=== PATIENT | female | born 1940 | race Caucasian/White ===

== ENCOUNTER 2024-05-28 14:12 | Emergency (ER) | payer OTHER ==
[~2024-05-28] VITALS: Ht 162.6 cm; Wt 73.9 kg
[2024-05-28] MEDS ORDERED: MAGN400O6 PO (15:34)
[2024-05-28] MEDS ORDERED: BUSP10TA3 PO (15:34)
[2024-05-28] MEDS ORDERED: BISA10SU11 RC (15:34)
[2024-05-28] MEDS ORDERED: ROSU10TA2 PO (15:34)
[2024-05-28] MEDS ORDERED: MEMA10TA PO (15:34)
[2024-05-28] MEDS ORDERED: KETO15CR2 TP (15:34)
[2024-05-28] MEDS ORDERED: CALC625T PO (15:34)
[2024-05-28] MEDS ORDERED: DONE10TA44 PO (15:34)
[2024-05-28] MEDS ORDERED: DOCU100C36 PO (15:34)
[2024-05-28] MEDS ORDERED: ASPI-1169 PO (15:34)
[2024-05-28] MEDS ORDERED: CYAN500T64 PO (15:34)
[2024-05-28] MEDS ORDERED: BUPR-319 PO (15:34)
[2024-05-28] MEDS ORDERED: CHOL100043 PO (15:34)
[2024-05-28] MEDS ORDERED: [UNRECOGNIZED DRUG - OTHER] PO (15:34)
[2024-05-28] MEDS ORDERED: DICL100G34 TP (15:34)
[2024-05-28] MEDS ORDERED: MAG-135 PO (15:34)
[2024-05-28] MEDS ORDERED: MONT10TA22 PO (15:34)
[2024-05-28] MEDS ORDERED: ACET-868 PO (15:34)
[2024-05-28] MEDS ORDERED: NAPR-1196 PO (15:34)
[2024-05-28] MEDS ORDERED: LOPE2CAP PO (15:34)
[2024-05-28 15:39] VITALS: BP 119/64; TEMP 98.7; O2SAT 100
== END 2024-05-28 15:40 | disposition home or self-care (01) ==
LOC: ER 14:14
DX: S09.8XXA Other specified injuries of head, initial encounter (principal); E78.5 Hyperlipidemia, unspecified; F03.90 Unspecified dementia, unspecified severity, without behavioral disturbance, psychotic disturbance, mood disturbance, and anxiety; Z88.5 Allergy status to narcotic agent; W01.0XXA Fall on same level from slipping, tripping and stumbling without subsequent striking against object, initial encounter; Y93.89 Activity, other specified; Y92.89 Other specified places as the place of occurrence of the external cause; Y99.8 Other external cause status
CPT/HCPCS: 70450-TC

== ENCOUNTER 2024-11-07 12:55 | Emergency (ER) | payer OTHER ==
[~2024-11-07] VITALS: Ht 157.5 cm; Wt 76.7 kg
[~2024-11-07 12:55] MED LIST: ACET-868 PO; ASPI-1169 PO; BISA10SU11 RC; BUPR-319 PO; BUSP10TA3 PO; CALC625T PO; CHOL100043 PO; CYAN500T64 PO; DICL100G34 TP; DOCU100C36 PO; DONE10TA44 PO; KETO15CR2 TP; LOPE2CAP PO; MAG-135 PO; MAGN400O6 PO; MEMA10TA PO; MONT10TA22 PO; NAPR-1196 PO; ROSU10TA2 PO; [UNRECOGNIZED DRUG - OTHER] PO
[2024-11-07 13:09] VITALS: TEMP 97.9
[2024-11-07 13:37] LABS: BASOPHILS # (AUTO) 0.1 K/uL (0.0-0.2); BASOPHILS % (AUTO) 0.8 % (0.0-2.0); EOSINOPHILS # (AUTO) 0.1 K/uL (0.0-0.7); EOSINOPHILS % (AUTO) 0.6 % (0.0-6.0); HEMATOCRIT 47 % (33-45); HEMOGLOBIN 16.1 g/dL (11.5-14.8); LYMPHOCYTES # (AUTO) 1.3 K/uL (0.8-4.8); LYMPHOCYTES % (AUTO) 12.4 % (20.0-44.0); MEAN CORPUSCULAR HEMOGLOBIN 28 PG (26.0-33.0); MEAN CORPUSCULAR HGB CONC 34 g/dl (31.0-36.0); MEAN CORPUSCULAR VOLUME 81 fL (82-100); MONOCYTES # (AUTO) 1.5 K/uL (0.1-1.30); MONOCYTES % (AUTO) 14.4 % (2.0-12.0); NEUTROPHILS # (AUTO) 7.7 K/uL (1.8-8.9); NEUTROPHILS % (AUTO) 71.8 % (43.0-81.0); PLATELET COUNT (AUTO) 177 K/uL (150-450); RED BLOOD CELL COUNT(AUTO) 5.79 MIL/uL (4.0-5.2); RED CELL DISTRIBUTION WIDTH 15.2 % (11.5-15.0); WHITE BLOOD COUNT (AUTO) 10.7 K/uL (4.3-11.0)
[2024-11-07 13:49] LABS: CALCIUM, SERUM 9.1 mg/dL (8.5-10.1); CREATININE 0.6 mg/dL (0.6-1.3); POTASSIUM 3.8 mmol/L (3.5-5.1)
[2024-11-07 14:15] LABS: EOSINOPHILS % (MANUAL) 1 % (0-4); LYMPHOCYTES % (MANUAL) 5 % (16-48); MONOCYTES % (MANUAL) 12 % (0-11.0); NEUTROPHILS % (MANUAL) 82 (42-76); PLATELET ESTIMATE ADEQUATE
[2024-11-07 14:16] LABS: ANISOCYTOSIS 1+
[2024-11-07] MEDS: ALBUTEROL FS 2.5 MG/3 ML VIAL.NEB CONTNEB ONE (14:30)
[2024-11-07] MEDS ORDERED: methylPREDNISolone SOD SUCC 125 MG/2ML VIAL ONE (15:19)
[2024-11-07] MEDS: methylPREDNISolone SOD SUCC 125 MG/2ML VIAL IV ONE (15:20)
[2024-11-07] MEDS ORDERED: IPRATROPIUM NEB FS 0.5 MG/2.5 ML AMPUL.NEB ONE (15:29)
[2024-11-07] MEDS ORDERED: ALBUTEROL FS 2.5 MG/3 ML VIAL.NEB ONE (15:29)
[2024-11-07 15:31] VITALS: O2SAT 91
[2024-11-07] MEDS: IPRATROPIUM NEB FS 0.5 MG/2.5 ML AMPUL.NEB NEB ONE (15:31)
[2024-11-07 16:31] VITALS: O2SAT 98
[2024-11-07] MEDS ORDERED: ALBU18HF2 INH (17:09)
[2024-11-07] MEDS ORDERED: PRED50TA PO (17:09)
[2024-11-07 17:18] VITALS: BP 130/80; O2SAT 97
== END 2024-11-07 17:17 | disposition home or self-care (01) ==
LOC: ER 12:59
DX: S00.83XA Contusion of other part of head, initial encounter (principal); I10 Essential (primary) hypertension; E78.5 Hyperlipidemia, unspecified; F03.90 Unspecified dementia, unspecified severity, without behavioral disturbance, psychotic disturbance, mood disturbance, and anxiety; Z79.82 Long term (current) use of aspirin; Z79.899 Other long term (current) drug therapy; Z88.5 Allergy status to narcotic agent; W18.39XA Other fall on same level, initial encounter; Y93.89 Activity, other specified; Y92.89 Other specified places as the place of occurrence of the external cause; Y99.9 Unspecified external cause status
CPT/HCPCS: 99285; 70450; 96374; 71045; 70486; 85025; 80048; 36415; 94644; J2919